=== PATIENT | male | born 2000 | race Hispanic/Latino ===

== ENCOUNTER 2022-03-03 15:45 | Emergency (ER) | payer MEDICAID ==
[~2022-03-03] VITALS: Ht 167.6 cm; Wt 113.4 kg
[2022-03-03 15:55] VITALS: BP 133/90
[2022-03-03] MEDS ORDERED: LIDOCAINE HCL 1% 20 ML VIAL ONE (16:35)
[2022-03-03] MEDS ORDERED: TETANUS/DIPHTHERIA TOXOID [ADULT] 0.5 ML VIAL IM ONE (17:00)
== END 2022-03-03 17:19 | disposition home or self-care (01) ==
LOC: EDH 15:45
DX: S61.442A Puncture wound with foreign body of left hand, initial encounter (principal); X58.XXXA Exposure to other specified factors, initial encounter; Y93.89 Activity, other specified; Y92.89 Other specified places as the place of occurrence of the external cause; Y99.8 Other external cause status
CPT/HCPCS: 73120; 90471; 90714